=== PATIENT | male | born 1970 | race Caucasian/White ===

== ENCOUNTER 2017-07-02 18:08 | Emergency (ER) | payer MEDICAID ==
[2017-07-02 18:18] VITALS: BP 139/84
--- NOTE | 2017-07-02 18:54 | EDM.PDOC ---
ED HPI GENERAL MEDICAL PROBLEM - General Chief Complaint: Respiratory Problem Stated Complaint: BRONCHITIS [id number] Time Seen by Provider: 07/02/17 18:28 Source of Information: Reports: Patient, RN, RN Notes Reviewed History Limitations: Reports: No Limitations - History of Present Illness INITIAL COMMENTS - FREE TEXT/NARRATIVE: Patient presents to ER with complaint of cough andfeels he is developing bronchitis, as he has had this in the past.He has had shortness of breath. No fever,chills, chest pain, nausea, vomiting and diarrhea. Location: Reports: Chest Quality: Reports: Ache Severity: Mild Improves with: Reports: None Worsens with: Reports: None Associated Symptoms: Reports: No Other Symptoms - Related Data Allergies Allergy/AdvReac Type Severity Reaction Status Date / Time acetaminophen Allergy Stomach Verified 07/02/17 18:20 Upset Penicillins Allergy Rash Verified 07/02/17 18:19 zolpidem [From Ambien] Allergy Stomach Verified 07/02/17 18:20 Upset Home Meds: Home Meds Atenolol [Tenormin] 25 mg PO DAILY 07/07/14 [History] Escitalopram Oxalate [Escitalopram Oxalate] 20 mg PO DAILY 07/07/14 [History] Folic Acid [Folic Acid] 1 mg PO DAILY 07/07/14 [History] Hydrochlorothiazide [Hydrochlorothiazide] 25 mg PO DAILY 07/07/14 [History] Lisinopril [Prinivil] 10 mg PO DAILY 07/07/14 [History] Omeprazole [Omeprazole] 20 mg PO DAILY 07/07/14 [History] Rosuvastatin Calcium [Crestor] 20 mg PO DAILY 07/07/14 [History] metFORMIN [Glucophage XR] 500 mg PO TID 07/07/14 [History] Albuterol Sulfate [Proventil Hfa] 6.7 gm IH Q4H PRN 04/03/15 [History] Aspirin [Halfprin] 81 mg PO DAILY 04/03/15 [History] Ibuprofen [Motrin] 800 mg PO BID 04/03/15 [History] LORazepam [Ativan] 0.5 mg PO ASDIRECTED 04/03/15 [History] oxyCODONE [oxyCODONE] 10 mg PO TID PRN 04/03/15 [History] tiZANidine [Zanaflex] 4 mg PO Q8H 07/02/17 [History] Past Medical History Cardiovascular History: Reports: High Cholesterol, Hypertension Respiratory History: Reports: Bronchitis, Recurrent Gastrointestinal History: Reports: GERD Musculoskeletal History: Reports: Arthritis, Other (See Below) (degenerative bone disease) Endocrine/Metabolic History: Reports: Diabetes, Type II - Past Surgical History Cardiovascular Surgical History: Reports: None Social & Family History - Tobacco Use Smoking Status *Q: Current Every Day Smoker Years of Tobacco use: 25 Packs/Tins Daily: 0.5 Used Tobacco, but Quit: No Month Tobacco Last Used: july Second Hand Smoke Exposure: Yes - Caffeine Use Caffeine Use: Reports: Soda - Alcohol Use Days Per Week of Alcohol Use: 0 - Recreational Drug Use Recreational Drug Use: No ED ROS GENERAL - Review of Systems Review Of Systems: ROS reveals no pertinent complaints other than HPI. ED EXAM, GENERAL - Physical Exam Exam: See Below Exam Limited By: No Limitations General Appearance: Alert, WD/WN, No Apparent Distress Eye Exam: Bilateral Eye: Normal Inspection Ears: Normal External Exam, Normal Canal, Hearing Grossly Normal, Normal TMs Nose: Normal Inspection, Normal Mucosa, No Blood Throat/Mouth: Normal Inspection, Normal Lips, Normal Teeth, Normal Gums, Normal Oropharynx, Normal Voice, No Airway Compromise Head: Atraumatic, Normocephalic Neck: Normal Inspection, Supple, Non-Tender, Full Range of Motion Respiratory/Chest: Other (lung sounds diminished) Cardiovascular: Normal Peripheral Pulses, Regular Rate, Rhythm, No Edema, No Gallop, No JVD, No Murmur, No Rub GI/Abdominal: Normal Bowel Sounds, Soft, Non-Tender, No Organomegaly, No Distention, No Abnormal Bruit, No Mass (Male) Exam: Deferred Rectal (Males) Exam: Deferred Back Exam: Normal Inspection, Full Range of Motion, NT Extremities: Normal Inspection, Normal Range of Motion, Non-Tender, Normal Capillary Refill, No Pedal Edema Neurological: Alert, Oriented, CN II-XII Intact, Normal Cognition, Normal Gait, Normal Reflexes, No Motor/Sensory Deficits Psychiatric: Normal Affect, Normal Mood Skin Exam: Warm, Dry, Intact, Normal Color, No Rash Lymphatic: No Adenopathy Course - Vital Signs Last Recorded V/S: Last Vital Signs Temp 97.6 F 07/02/17 18:16 Pulse 93 07/02/17 18:16 Resp 16 07/02/17 18:16 BP 139/84 07/02/17 18:16 Pulse Ox 99 07/02/17 18:16 Departure - Departure Time of Disposition: 19:04 Disposition: Home, Self-Care 01 Condition: Fair Clinical Impression: Upper respiratory disease - Discharge Information Instructions: Smoking Cessation, Tips for Success, [id number], Upper Respiratory Infection, Adult, [id number] Forms: ED Department Discharge Additional Instructions: RX: Azithromycin Continue using Albuterol Follow up with your primary care facility this week
== END 2017-07-02 19:04 | disposition home or self-care (01) ==
LOC: DL.ED 18:08
DX: J39.9 Disease of upper respiratory tract, unspecified (principal); I10 Essential (primary) hypertension; E78.00 Pure hypercholesterolemia, unspecified; K21.9 Gastro-esophageal reflux disease without esophagitis; E11.9 Type 2 diabetes mellitus without complications; F17.210 Nicotine dependence, cigarettes, uncomplicated; Z79.82 Long term (current) use of aspirin; Z79.899 Other long term (current) drug therapy; Z88.0 Allergy status to penicillin; Z88.6 Allergy status to analgesic agent; Z88.8 Allergy status to other drugs, medicaments and biological substances; Z79.84 Long term (current) use of oral hypoglycemic drugs
CPT/HCPCS: 99284

== ENCOUNTER 2020-01-10 21:05 | Emergency (ER) | payer MEDICAID ==
[~2020-01-10 21:05] MED LIST: 50% Dextrose in Water 50 ML Syringe ONE; LORazepam 2 MG/ML SDV ONE; Midazolam 1 MG/ML 2 ML SDV ONE
[2020-01-10] MEDS ORDERED: 50% Dextrose in Water 50 ML Syringe IV ONE (21:06)
[2020-01-10] MEDS ORDERED: Etomidate 2 MG/ML 20 ML SDV IVPUSH ONE (21:06)
[2020-01-10] MEDS ORDERED: LORazepam 2 MG/ML SDV IV ONE (21:06)
[2020-01-10] MEDS ORDERED: Rocuronium 100 MG/10 ML MDV IV ONE (21:06)
[2020-01-10] MEDS ORDERED: Midazolam 1 MG/ML 2 ML SDV IV ONE (21:06)
[2020-01-10] MEDS ORDERED: Propofol 1,000 MG/100 ML SDV IV ONE (21:06)
[2020-01-10] MEDS ORDERED: Succinylcholine 200 MG/10 ML MDV IV ONE (21:06)
[2020-01-10 21:15] LABS: CHLORIDE,CL 105 mmol/L (98-107); SODIUM,NA 141 mmol/L (136-145)
--- NOTE | 2020-01-10 21:16 | CR ---
PROCEDURE INFORMATION: Exam: XR Chest, 1 View Exam date and time: 01/10/2020 9:08 PM Age: 49 years old Clinical indication: Other: Tube placement; Additional info: Post intubation TECHNIQUE: Imaging protocol: XR of the chest Views: 1 view. COMPARISON: No relevant prior studies available. FINDINGS: Tubes, catheters and devices: TheThe tip of the enteric tube resides in the proximal stomach. An endotracheal tube is present, lying with its tip 3.2 cm above the rosemarie. Lungs: There is questionable ground-glass opacity in the upper lobes. Pleural space: There are no pleural effusions present. Heart/Mediastinum: The pulmonary arteries are not enlarged. Bones/joints: Unremarkable IMPRESSION: 1. The enteric tube tip resides in the proximal stomach. 2. The endotracheal tube tip lies about 3.2 cm above the rosemraie.
[2020-01-10 21:18] LABS: O2 DELIVERY DEVICE RESUSCITATION BAG; O2 FLOW RATE 0
[2020-01-10 21:20] LABS: BASE EXCESS ARTERIAL -11 mmol/L ((-2)-(+3)); BICARBONATE,ARTERIAL 19.4 mmol/L (22-26); O2 SATURATION ARTERIAL 86 % (95-100); PO2 ARTERIAL 76 mmHg (70-100)
[2020-01-10 21:38] LABS: ALLEN TEST LB; PCO2 ARTERIAL 69 mmHg (35-45)
--- NOTE | 2020-01-10 21:39 | CT ---
PROCEDURE INFORMATION: Exam: CT Head Without Contrast Exam date and time: 01/10/2020 9:21 PM Age: 49 years old Clinical indication: Other: Altered mentation; Additional info: Altered mental TECHNIQUE: Imaging protocol: Computed tomography of the head without contrast. Radiation optimization: All CT scans at this facility use at least one of these dose optimization techniques: automated exposure control; mA and/or kV adjustment per patient size (includes targeted exams where dose is matched to clinical indication); or iterative reconstruction. Other technique: STROKE PROTOCOL was implemented. COMPARISON: No relevant prior studies available. FINDINGS: Brain: There is no evidence of acute hemorrhage within the brain parenchyma or the subarachnoid space. Ventricles: There is no significant ventricular effacement or midline shift. Bones/joints: The skull is normal. Sinuses: The sinuses are normal. Mastoid air cells: The mastoid sinuses are normal. Orbits: The orbits are normal. Soft tissues: The extracranial soft tissues are normal. IMPRESSION: No acute abnormality. ASSESSMENT: ASPECTS ([place] Stroke Program Early CT Score) is 10.
--- NOTE | 2020-01-10 21:58 | PCM.SN.2 ---
- Free Text/Narrative Note: Intubation. Called by ER provider to intubate Pt. Pt combative with 5 people restraining Pt. Pt non verbal but yelling. Brief history obtained from ER provider. Pt given 5 mg of Zemuron, 18 mg of etomidate and 100 mg of Anectine IV. Cricoid pressure held and maintained. Glidesdcope, #3 blade. 8.0 ETT Cords visualized and tube through vocal cords at 2053. Tube secured at 24 cm at lip. NG tube placed with pos auscultation of placement. PCXR taken , 45 mg of Zemuron given IV. [employer] present and report given. Propofol gtt started at 75 mcg /kg/min. Pt maintaining MAP > 60. [facility]om[facility] to [facility] Final report given. Procedure time 2041 to 2153
[2020-01-10] MEDS ORDERED: 50% Dextrose in Water 50 ML Syringe ONE (21:59)
--- NOTE | 2020-01-11 03:54 | EDM.PDOC ---
ED HPI GENERAL MEDICAL PROBLEM - General Chief Complaint: Diabetic Complaint Stated Complaint: AMBULANCE Time Seen by Provider: 01/10/20 21:17 Source of Information: Reports: EMS, Family History Limitations: Reports: Altered Mental Status - History of Present Illness INITIAL COMMENTS - FREE TEXT/NARRATIVE: ED via [facility] patient found by family unresponsive. Last known well, 3pm today when laid down for nap. Found on floor. Initial Blood sugar 30. D10 per EMS. BS up to 75 on arrival. EMS noted posturing upper extremities as patient started to arouse. Unresponsive, Agited thrashing on arrival. Fmily report no recent illness. Kidney function poor with last clinic appointment and metformin stopped and new med started, Blood sugars have been low since. Girlfriend denies drug use, Unaware of any trauma. No exposure to COvid , Girlfriend states he doesn't leave house very often and she is tested through work and was just tested and negative. - Related Data Allergies Allergy/AdvReac Type Severity Reaction Status Date / Time acetaminophen Allergy Stomach Verified 07/02/17 18:20 Upset Penicillins Allergy Rash Verified 07/02/17 18:19 zolpidem [From Ambien] Allergy Stomach Verified 07/02/17 18:20 Upset Home Meds: Home Meds Escitalopram Oxalate 20 mg PO DAILY 07/07/14 [History] Folic Acid 1 mg PO DAILY 07/07/14 [History] Hydrochlorothiazide 25 mg PO DAILY 07/07/14 [History] Omeprazole 20 mg PO DAILY 07/07/14 [History] Rosuvastatin Calcium [Crestor] 20 mg PO DAILY 07/07/14 [History] atenoloL [Tenormin] 25 mg PO DAILY 07/07/14 [History] lisinopriL [Prinivil] 10 mg PO DAILY 07/07/14 [History] metFORMIN [Glucophage XR] 500 mg PO TID 07/07/14 [History] Albuterol Sulfate [Proventil Hfa] 6.7 gm IH Q4H PRN 04/03/15 [History] Aspirin [Halfprin] 81 mg PO DAILY 04/03/15 [History] Ibuprofen [Motrin] 800 mg PO BID 04/03/15 [History] LORazepam [Ativan] 0.5 mg PO ASDIRECTED 04/03/15 [History] oxyCODONE 10 mg PO TID PRN 04/03/15 [History] tiZANidine [Zanaflex] 4 mg PO Q8H 07/02/17 [History] Past Medical History Cardiovascular History: Reports: High Cholesterol, Hypertension Respiratory History: Reports: Bronchitis, Recurrent Gastrointestinal History: Reports: GERD Musculoskeletal History: Reports: Arthritis, Other (See Below) (degenerative bone disease) Endocrine/Metabolic History: Reports: Diabetes, Type II - Past Surgical History Cardiovascular Surgical History: Reports: None Social & Family History - Caffeine Use Caffeine Use: Reports: Soda ED ROS GENERAL - Review of Systems Review Of Systems: Comprehensive ROS is negative, except as noted in HPI. ED EXAM GENERAL NO PERIP PULSE - Physical Exam Exam: See Below Exam Limited By: Combative/Threatening General Appearance: Obtunded, Moderate Distress Eye Exam: Bilateral Eye: EOMI, PERRL Ears: Normal External Exam Nose: Normal Inspection Throat/Mouth: Normal Lips, No Airway Compromise Head: Atraumatic, Normocephalic Respiratory/Chest: Lungs Clear, Normal Breath Sounds. No: Crackles, Rales, Rhonchi, Wheezing Cardiovascular: Normal Peripheral Pulses, Regular Rate, Rhythm, Tachycardia. No: No Edema (2+) GI/Abdominal: Soft Neurological: Unresponsive (agitated thrashing, incontinent large amount urine), Other (posturing of upper extremities) Skin Exam: Warm (moist), Diaphoretic, Wound/Incision (superficial abrasions bilateral knees) Course - Orders/Labs/Meds Orders: Active Orders 24 hr Category Date Time Status CULTURE BLOOD [BC] Stat Lab 01/10/20 20:40 Results Labs: Laboratory Tests 01/10/20 01/10/20 01/10/20 Range/Units 20:26 20:35 20:35 WBC (5.0-10.0) 10^3/uL RBC (4.6-6.2) 10^6/uL Hgb (14.0-18.0) g/dL Hct (40.0-54.0) % MCV (80-100) fL MCH (27.0-34.0) pg MCHC (33.0-35.0) g/dL Plt Count (150-450) 10^3/uL Neut % (Auto) (42.2-75.2) % Lymph % (Auto) (20.5-50.1) % [place] % (Auto) (2-8) % Eos % (Auto) (1.0-3.0) % Baso % (Auto) (0.0-1.0) % ABG pH (7.35-7.45) ABG pCO2 (35-45) mmHg ABG pO2 (70-100) mmHg ABG HCO3 (22-26) mmol/L ABG O2 Saturation (95-100) % ABG Base Excess ((-2)-(+3)) mmol/L Mata Test O2 Delivery Device Oxygen Flow Rate Sodium (136-145) mmol/L Potassium (3.5-5.1) mmol/L Chloride (98-107) mmol/L Carbon Dioxide (21-32) mmol/L Anion Gap (7-13) mEq/L BUN (7-18) mg/dL Creatinine (0.70-1.30) mg/dL Est Cr Clr Drug Dosing Estimated GFR (MDRD) BUN/Creatinine Ratio (No establ ref range) Glucose (74-99) mg/dL POC Glucose 75 (70-105) mg/dl Lactic Acid (0.4-2.0) mmol/L Calcium (8.5-10.1) mg/dL Total Bilirubin (0.2-1.0) mg/dL AST (15-37) U/L ALT (16-63) U/L Alkaline Phosphatase (46-116) U/L Troponin I (0.000-0.056) ng/mL Total Protein (6.4-8.2) g/dL Albumin (3.4-5.0) g/dL Globulin Albumin/Globulin Ratio Urine Color Yellow (YELLOW) Urine Appearance Clear (CLEAR) Urine pH 7.0 (5.0-9.0) Ur Specific [place] 1.010 (1.005-1.030) Urine Protein Negative (NEGATIVE) Urine Glucose (UA) Negative (NEGATIVE) Urine Ketones Negative (NEGATIVE) Urine Occult Blood Trace-lysed H (NEGATIVE) Urine Nitrite Negative (NEGATIVE) Urine Bilirubin Negative (NEGATIVE) Urine Urobilinogen 0.2 (0.2-1.0) mg/dL Ur Leukocyte Esterase Negative (NEGATIVE) Urine RBC 0-5 /HPF Urine WBC 0-5 (0-5/HPF) /HPF Ur Epithelial Cells Rare (NOT SEEN) /HPF Urine Bacteria Rare (0-FEW/HPF) /HPF Urine Opiates Screen Negative (NEGATIVE) Ur Oxycodone Screen Positive H (NEGATIVE) Urine Methadone Screen Negative (NEGATIVE) Ur Barbiturates Screen Negative (NEGATIVE) U Tricyclic Antidepress Negative (NEGATIVE) Ur Phencyclidine Scrn Negative (NEGATIVE) Ur Amphetamine Screen Negative (NEGATIVE) U Methamphetamines Scrn Positive H (NEGATIVE) Urine MDMA Screen Negative (NEGATIVE) U Benzodiazepines Scrn Negative (NEGATIVE) Urine Cocaine Screen Negative (NEGATIVE) U Marijuana (THC) Screen Negative (NEGATIVE) Ethyl Alcohol (0) mg/dL COVID-19 ([facility]WIN[facility]) (NEGATIVE) 01/10/20 01/10/20 01/10/20 Range/Units 20:40 20:40 20:40 WBC 20.3 H (5.0-10.0) 10^3/uL RBC 3.60 L (4.6-6.2) 10^6/uL Hgb 11.1 L (14.0-18.0) g/dL Hct 32.7 L (40.0-54.0) % MCV 90.8 (80-100) fL MCH 30.8 (27.0-34.0) pg MCHC 33.9 (33.0-35.0) g/dL Plt Count 307 (150-450) 10^3/uL Neut % (Auto) 87.7 H (42.2-75.2) % Lymph % (Auto) 5.7 L (20.5-50.1) % [place] % (Auto) 6.4 (2-8) % Eos % (Auto) 0.1 L (1.0-3.0) % Baso % (Auto) 0.1 (0.0-1.0) % ABG pH (7.35-7.45) ABG pCO2 (35-45) mmHg ABG pO2 (70-100) mmHg ABG HCO3 (22-26) mmol/L ABG O2 Saturation (95-100) % ABG Base Excess ((-2)-(+3)) mmol/L Mata Test O2 Delivery Device Oxygen Flow Rate Sodium 141 (136-145) mmol/L Potassium 4.0 (3.5-5.1) mmol/L Chloride 105 (98-107) mmol/L Carbon Dioxide 17 L (21-32) mmol/L Anion Gap 23.0 H (7-13) mEq/L BUN 43 H (7-18) mg/dL Creatinine 4.60 H (0.70-1.30) mg/dL Est Cr Clr Drug Dosing TNP Estimated GFR (MDRD) 14 BUN/Creatinine Ratio 9.3 (No establ ref range) Glucose 48 L* (74-99) mg/dL POC Glucose (70-105) mg/dl Lactic Acid 8.5 H* (0.4-2.0) mmol/L Calcium 8.9 (8.5-10.1) mg/dL Total Bilirubin 0.3 (0.2-1.0) mg/dL AST 32 (15-37) U/L ALT 24 (16-63) U/L Alkaline Phosphatase 127 H (46-116) U/L Troponin I 0.257 H* (0.000-0.056) ng/mL Total Protein 7.9 (6.4-8.2) g/dL Albumin 3.7 (3.4-5.0) g/dL Globulin 4.2 Albumin/Globulin Ratio 0.9 Urine Color (YELLOW) Urine Appearance (CLEAR) Urine pH (5.0-9.0) Ur Specific [place] (1.005-1.030) Urine Protein (NEGATIVE) Urine Glucose (UA) (NEGATIVE) Urine Ketones (NEGATIVE) Urine Occult Blood (NEGATIVE) Urine Nitrite (NEGATIVE) Urine Bilirubin (NEGATIVE) Urine Urobilinogen (0.2-1.0) mg/dL Ur Leukocyte Esterase (NEGATIVE) Urine RBC /HPF Urine WBC (0-5/HPF) /HPF Ur Epithelial Cells (NOT SEEN) /HPF Urine Bacteria (0-FEW/HPF) /HPF Urine Opiates Screen (NEGATIVE) Ur Oxycodone Screen (NEGATIVE) Urine Methadone Screen (NEGATIVE) Ur Barbiturates Screen (NEGATIVE) U Tricyclic Antidepress (NEGATIVE) Ur Phencyclidine Scrn (NEGATIVE) Ur Amphetamine Screen (NEGATIVE) U Methamphetamines Scrn (NEGATIVE) Urine MDMA Screen (NEGATIVE) U Benzodiazepines Scrn (NEGATIVE) Urine Cocaine Screen (NEGATIVE) U Marijuana (THC) Screen (NEGATIVE) Ethyl Alcohol < 3 (0) mg/dL COVID-19 ([facility]) (NEGATIVE) 01/10/20 01/10/20 01/10/20 Range/Units 20:40 21:02 21:10 WBC (5.0-10.0) 10^3/uL RBC (4.6-6.2) 10^6/uL Hgb (14.0-18.0) g/dL Hct (40.0-54.0) % MCV (80-100) fL MCH (27.0-34.0) pg MCHC (33.0-35.0) g/dL Plt Count (150-450) 10^3/uL Neut % (Auto) (42.2-75.2) % Lymph % (Auto) (20.5-50.1) % [place] % (Auto) (2-8) % Eos % (Auto) (1.0-3.0) % Baso % (Auto) (0.0-1.0) % ABG pH 7.08 L* (7.35-7.45) ABG pCO2 69 H* (35-45) mmHg ABG pO2 76 (70-100) mmHg ABG HCO3 19.4 L (22-26) mmol/L ABG O2 Saturation 86 L (95-100) % ABG Base Excess -11 L ((-2)-(+3)) mmol/L Mata Test Lb O2 Delivery Device Resuscitation bag Oxygen Flow Rate 0 Sodium (136-145) mmol/L Potassium (3.5-5.1) mmol/L Chloride (98-107) mmol/L Carbon Dioxide (21-32) mmol/L Anion Gap (7-13) mEq/L BUN (7-18) mg/dL Creatinine (0.70-1.30) mg/dL Est Cr Clr Drug Dosing Estimated GFR (MDRD) BUN/Creatinine Ratio (No establ ref range) Glucose (74-99) mg/dL POC Glucose 59 L (70-105) mg/dl Lactic Acid (0.4-2.0) mmol/L Calcium (8.5-10.1) mg/dL Total Bilirubin (0.2-1.0) mg/dL AST (15-37) U/L ALT (16-63) U/L Alkaline Phosphatase (46-116) U/L Troponin I (0.000-0.056) ng/mL Total Protein (6.4-8.2) g/dL Albumin (3.4-5.0) g/dL Globulin Albumin/Globulin Ratio Urine Color (YELLOW) Urine Appearance (CLEAR) Urine pH (5.0-9.0) Ur Specific [place] (1.005-1.030) Urine Protein (NEGATIVE) Urine Glucose (UA) (NEGATIVE) Urine Ketones (NEGATIVE) Urine Occult Blood (NEGATIVE) Urine Nitrite (NEGATIVE) Urine Bilirubin (NEGATIVE) Urine Urobilinogen (0.2-1.0) mg/dL Ur Leukocyte Esterase (NEGATIVE) Urine RBC /HPF Urine WBC (0-5/HPF) /HPF Ur Epithelial Cells (NOT SEEN) /HPF Urine Bacteria (0-FEW/HPF) /HPF Urine Opiates Screen (NEGATIVE) Ur Oxycodone Screen (NEGATIVE) Urine Methadone Screen (NEGATIVE) Ur Barbiturates Screen (NEGATIVE) U Tricyclic Antidepress (NEGATIVE) Ur Phencyclidine Scrn (NEGATIVE) Ur Amphetamine Screen (NEGATIVE) U Methamphetamines Scrn (NEGATIVE) Urine MDMA Screen (NEGATIVE) U Benzodiazepines Scrn (NEGATIVE) Urine Cocaine Screen (NEGATIVE) U Marijuana (THC) Screen (NEGATIVE) Ethyl Alcohol (0) mg/dL COVID-19 ([facility]WINA) Negative (NEGATIVE) 01/10/20 Range/Units 21:14 WBC (5.0-10.0) 10^3/uL RBC (4.6-6.2) 10^6/uL Hgb (14.0-18.0) g/dL Hct (40.0-54.0) % MCV (80-100) fL MCH (27.0-34.0) pg MCHC (33.0-35.0) g/dL Plt Count (150-450) 10^3/uL Neut % (Auto) (42.2-75.2) % Lymph % (Auto) (20.5-50.1) % [place] % (Auto) (2-8) % Eos % (Auto) (1.0-3.0) % Baso % (Auto) (0.0-1.0) % ABG pH (7.35-7.45) ABG pCO2 (35-45) mmHg ABG pO2 (70-100) mmHg ABG HCO3 (22-26) mmol/L ABG O2 Saturation (95-100) % ABG Base Excess ((-2)-(+3)) mmol/L Mata Test O2 Delivery Device Oxygen Flow Rate Sodium (136-145) mmol/L Potassium (3.5-5.1) mmol/L Chloride (98-107) mmol/L Carbon Dioxide (21-32) mmol/L Anion Gap (7-13) mEq/L BUN (7-18) mg/dL Creatinine (0.70-1.30) mg/dL Est Cr Clr Drug Dosing Estimated GFR (MDRD) BUN/Creatinine Ratio (No establ ref range) Glucose (74-99) mg/dL POC Glucose 118 H (70-105) mg/dl Lactic Acid (0.4-2.0) mmol/L Calcium (8.5-10.1) mg/dL Total Bilirubin (0.2-1.0) mg/dL AST (15-37) U/L ALT (16-63) U/L Alkaline Phosphatase (46-116) U/L Troponin I (0.000-0.056) ng/mL Total Protein (6.4-8.2) g/dL Albumin (3.4-5.0) g/dL Globulin Albumin/Globulin Ratio Urine Color (YELLOW) Urine Appearance (CLEAR) Urine pH (5.0-9.0) Ur Specific [place] (1.005-1.030) Urine Protein (NEGATIVE) Urine Glucose (UA) (NEGATIVE) Urine Ketones (NEGATIVE) Urine Occult Blood (NEGATIVE) Urine Nitrite (NEGATIVE) Urine Bilirubin (NEGATIVE) Urine Urobilinogen (0.2-1.0) mg/dL Ur Leukocyte Esterase (NEGATIVE) Urine RBC /HPF Urine WBC (0-5/HPF) /HPF Ur Epithelial Cells (NOT SEEN) /HPF Urine Bacteria (0-FEW/HPF) /HPF Urine Opiates Screen (NEGATIVE) Ur Oxycodone Screen (NEGATIVE) Urine Methadone Screen (NEGATIVE) Ur Barbiturates Screen (NEGATIVE) U Tricyclic Antidepress (NEGATIVE) Ur Phencyclidine Scrn (NEGATIVE) Ur Amphetamine Screen (NEGATIVE) U Methamphetamines Scrn (NEGATIVE) Urine MDMA Screen (NEGATIVE) U Benzodiazepines Scrn (NEGATIVE) Urine Cocaine Screen (NEGATIVE) U Marijuana (THC) Screen (NEGATIVE) Ethyl Alcohol (0) mg/dL COVID-19 ([facility]) (NEGATIVE) Meds: Medications Discontinued Medications Generic Name Dose Route Start Last Admin Trade Name Freq PRN Reason Stop Dose Admin Dextrose/Water Confirm 01/10/20 21:03 Dextrose 50% In Water Administered 01/10/20 21:04 Dose 50 ml .ROUTE .STK-MED ONE Dextrose/Water Confirm 01/10/20 21:59 Dextrose 50% In Water Administered 01/10/20 22:00 Dose 50 ml .ROUTE .STK-MED ONE Lorazepam Confirm 01/10/20 20:28 Ativan Administered 01/10/20 20:29 Dose 2 mg .ROUTE .STK-MED ONE Midazolam HCl Confirm 01/10/20 20:34 Versed 1 Mg/Ml Administered 01/10/20 20:35 Dose 2 mg .ROUTE .STK-MED ONE - Re-Assessments/Exams Free Text/Narrative Re-Assessment/Exam: 01/11/20 03:58 agitated, thrashing, does not follow command, eyes open darting, spitting. No response to Ativan or Versed. $ point restraints for safety. Anesthesia here, Intubated Sedated. Dr Maddy Carnes accepting patient as [facility] on Diversion. Tx via F. Deyvi requesting CT head prior to transport. Blood sugars variable, Limited short response to IV glucose. Departure - Departure Time of Disposition: 21:35 Disposition: DC/Tfer to Acute Hospital 02 Condition: Critical Clinical Impression: Hypoglycemia, Positive urine drug screen, Acidosis, metabolic, with respiratory acidosis Altered mental status, unspecified Qualifiers: Altered mental status type: unspecified Qualified Code(s): R41.82 - Altered mental status, unspecified Diabetes Qualifiers: Diabetes mellitus type: type 2 Diabetes mellitus fpc insulin use: without termite technician use Diabetes mellitus complication status: with kidney complications Diabetes mellitus complication detail: with other kidney complication Qualified Code(s): E11.29 - Type 2 diabetes mellitus with other diabetic kidney complication - Discharge Information *PRESCRIPTION DRUG MONITORING PROGRAM REVIEWED*: No *COPY OF PRESCRIPTION DRUG MONITORING REPORT IN PATIENT KAYDEN: No Referrals: Bill Franco MD [Primary Care Provider] - Forms: ED Department Discharge - My Orders Last 24 Hours: My Active Orders 01/10/20 20:40 CULTURE BLOOD [BC] Stat - Assessment/Plan Last 24 Hours: My Active Orders 01/10/20 20:40 CULTURE BLOOD [BC] Stat
== END 2020-01-10 21:39 ==
LOC: DL.ED 21:05
DX: S80.212A Abrasion, left knee, initial encounter (principal); S80.211A Abrasion, right knee, initial encounter; E11.29 Type 2 diabetes mellitus with other diabetic kidney complication; E11.649 Type 2 diabetes mellitus with hypoglycemia without coma; E87.4 Mixed disorder of acid-base balance; Z20.828 Contact with and (suspected) exposure to other viral communicable diseases; R41.82 Altered mental status, unspecified; R82.90 Unspecified abnormal findings in urine; I10 Essential (primary) hypertension; E78.00 Pure hypercholesterolemia, unspecified; K21.9 Gastro-esophageal reflux disease without esophagitis; Z88.0 Allergy status to penicillin; Z88.8 Allergy status to other drugs, medicaments and biological substances; Z79.82 Long term (current) use of aspirin; Z79.899 Other long term (current) drug therapy; X58.XXXA Exposure to other specified factors, initial encounter
CPT/HCPCS: 31500; 36415; 36600; 51702; 70450; 71045; 80053; 80305-QW; 80307; 81001; 82803; 82962; 83605; 84484; 85025; 87040; 96374; 96375; 96376; 99285-25; J0330; J2060; J2250; J2704; J3490; U0002